=== PATIENT | female | born 1975 | race Caucasian/White ===

== ENCOUNTER 2016-05-09 12:10 | Emergency (ER) | payer OTHER ==
[2016-05-09 12:24] VITALS: BP 108/52; PULSE 77; TEMP 98.3; BMI 25.0
[2016-05-09] MEDS ORDERED: IBUPROFEN 400 MG TABLET (FP) PO ONE ×2 (12:51→12:52)
--- NOTE | 2016-05-09 14:14 | PDOC ---
History of Present Illness - General Chief Complaint: Cold Symptoms Stated Complaint: HEADACHE, THROAT PAIN, CONGESTION Time Seen by Provider: 05/09/16 12:44 History Source: Patient Exam Limitations: No Limitations - History of Present Illness Initial Comments: 05/09/16 14:09 CC sore throat , nasal congestion, and fever x 2 days; Timing/Duration: reports: getting worse Severity: reports: mild Associated Symptoms: reports: cough, fever/chills, headache, nasal congestion, nasal drainage, sore throat. denies: wheezing Past History - Past Medical History Allergies/Adverse Reactions: Allergies Allergy/AdvReac Type Severity Reaction Status Date / Time No Known Drug Allergies Allergy Unknown Verified 05/09/16 12:21 Home Medications: Ambulatory Orders Oseltamivir Phosphate [Tamiflu] 75 mg PO BID #10 capsule 06/04/15 CHF: No DVT: No Dementia: No Diabetes: No Other medical history: none - Psycho/Social/Smoking Cessation Hx Anxiety: No Suicidal Ideation: No Smoking History: Never smoked Have you smoked in the past 12 months: No Information on smoking cessation initiated: No Hx Alcohol Use: No Drug/Substance Use Hx: No Substance Use Type: None Respiratory Specific PMHX - Complaint Specific PMHX Angina: No Bronchitis: No Pneumonia: No Pulmonary Embolus: No TB (Tuberculosis): No Review of Systems - Review of Systems Constitutional: Yes: Fever, Malaise. No: Chills HEENTM: Yes: Nose Congestion, Throat Pain. No: Throat Swelling Respiratory: Yes: Cough. No: Stridor, Wheezing, Hemoptysis Cardiac (ROS): No: Symptoms Reported ABD/GI: No: Symptoms Reported, Diarrhea, Nausea, Vomiting : No: Symptoms Reported, Burning, Dysuria, Frequency *Physical Exam - Vital Signs Last Vital Signs Temp Pulse Resp BP Pulse Ox 98.3 F 77 18 108/52 100 05/09/16 12:22 05/09/16 12:22 05/09/16 12:22 05/09/16 12:22 05/09/16 12:22 - Physical Exam General Appearance: Yes: Appropriately Dressed. No: Apparent Distress HEENT: positive: TMs Normal, Pharyngeal Erythema, Nasal Congestion, Rhinorrhea. negative: Tonsillar Exudate, Tonsillar Erythema, TM Bulging, TM Dull, TM Erythema Neck: positive: Supple, Lymphadenopathy (R), Lymphadenopathy (L). negative: Tender, Rigid Respiratory/Chest: positive: Lungs Clear. negative: Rhonchi Cardiovascular: positive: Regular Rhythm, Regular Rate ED Treatment Course - ADDITIONAL ORDERS Additional order review: 05/09/16 12:59 Group A Strep Rapid Antigen - Final Throat - Medications Given in the ED: ED Medications Discontinued Medications Generic Name Dose Route Start Last Admin Trade Name Jalenq PRN Reason Stop Dose Admin Ibuprofen 400 mg 05/09/16 12:51 05/09/16 12:59 Motrin - PO 05/09/16 12:52 400 mg ONCE ONE Administration Medical Decision Making - Medical Decision Making 05/09/16 14:11 will treat with motrin in ED; also negative strep; will treat with nasal spray *DC/Admit/Observation/Transfer Diagnosis at time of Disposition: Sinusitis Qualifiers: Sinusitis location: unspecified location Chronicity: acute Recurrence: non- recurrent Qualified Code(s): J01.90 - Acute sinusitis, unspecified - Discharge Dispostion Disposition: HOME Condition at time of disposition: Stable Admit: No - Patient Instructions Additional Instructions: please see local MD next week if no better; lots of fluids; motrin 400mg for fever and headache Print Language: CROATIAN - Post Discharge Activity Work/School Note: Back to Work
== END 2016-05-09 14:26 | disposition home or self-care (01) ==
LOC: JERFT 12:10
DX: J01.90 Acute sinusitis, unspecified (principal)
CPT/HCPCS: 87070; 87077; 87430; 99281-25